=== PATIENT | male | born 1955 | race Caucasian/White ===

== ENCOUNTER → 2016-11-23 | Outpatient (CLI) | payer BC ==
--- NOTE | 2016-11-23 13:19 | XR ---
EXAMINATION TYPE: XR Hip Complete RT DATE OF EXAM: 11/23/2016 1:03 PM COMPARISON: NONE HISTORY: 61-year-old male with right hip pain TECHNIQUE: AP and frog-leg lateral views FINDINGS: There is [id number] circumferential narrowing of right hip joint space with marginal spurring. Suggestion of a subchondral geode within the inferior acetabulum. No acute fracture, subluxation, or dislocation. IMPRESSION: Moderate right hip osteoarthrosis. No acute osseous abnormality seen.
== END ==
LOC: RADXRMAIN 12:40
PROVIDERS: ATTEND Nurse Practitioner
DX: M16.11 Unilateral primary osteoarthritis, right hip (principal)
CPT/HCPCS: 73502

== ENCOUNTER → 2017-01-17 | Outpatient (CLI) | payer BC ==
[2017-01-17 13:02] LABS: ALT 38 U/L (21-72); AST 30 U/L (17-59); Alkaline Phosphatase 66 U/L (38-126); Anion Gap 8 mmol/L; Blood Urea Nitrogen 21 mg/dL (9-20); Calcium 9.5 mg/dL (8.4-10.2); Carbon Dioxide 28 mmol/L (22-30); Chloride 105 mmol/L (98-107); Glucose 93 mg/dL (74-99); Non-African American GFR(MDRD) >60 (>60 ml/min/1.73 sqM); Potassium 4.6 mmol/L (3.5-5.1); Sodium 141 mmol/L (137-145); Total Bilirubin 0.6 mg/dL (0.2-1.3); Total Protein 6.8 g/dL (6.3-8.2)
== END | disposition home or self-care (01) ==
LOC: LABWHC1 12:12
PROVIDERS: ATTEND Internal Medicine Interventional Cardiology
DX: R00.1 Bradycardia, unspecified (principal)
CPT/HCPCS: 36415; 80053; 84443

== ENCOUNTER → 2017-02-21 | Outpatient (CLI) | payer BC ==
--- NOTE | 2017-02-22 06:21 | MR ---
EXAMINATION TYPE: MR hip RT wo con DATE OF EXAM: 02/21/2017 12:46 PM COMPARISON: Radiographs 11/23/2016 HISTORY: 61-year-old male pain in rt hip TECHNIQUE: Multiplanar, multisequence images of the right hip were obtained without IV contrast. FINDINGS: Prostate gland is enlarged measuring 5.3 cm wide. Multilevel degenerative disc disease in the visualized lower lumbar spine. The sacrum and SI joints appear intact. No evidence for hip fracture or AVN. Along the superior weight-bearing aspect of the right femoral head, slightly anteriorly, there is foc al subchondral marrow edema with irregularity of the overlying articular cartilage. The anterior superior labrum appears degenerative and torn. Mild collar osteophytosis is present. Rel atively symmetric small hip joint effusions on both sides. Some degenerative changes are also noted w ithin the anterior superior labrum on the left.. The rectus femoris origin, right hamstrings origin, and bilateral iliopsoas insertions are within nor mal limits. Mild increased signal at both gluteal insertions though left greater than right compatible with inser tional tendinosis but with a mild to moderate trochanteric bursitis on the left. In addition, there i s tendinosis and small 8mm intrasubstance tear at the left hamstrings origin. There is symmetric course, caliber, and signal intensity of the sciatic nerves. No suspicious bone marrow replacement or other significant soft tissue abnormality seen. IMPRESSION: 1. MRI findings are in keeping with moderate right hip osteoarthrosis with collar osteophytosis, dege nerative and torn anterior superior acetabular labrum, superolateral joint space narrowing, and degen erative signal changes in the subchondral bone along the weightbearing aspect of the femoral head. 2. No evidence for hip fracture or AVN. 3. Some insertional gluteal tendinosis on both sides with mild to moderate trochanteric bursitis on t he left. 4. Small 8 mm intrasubstance tear at the left hamstrings origin also incidentally noted. 5. Prostatomegaly.
== END | disposition home or self-care (01) ==
LOC: RADMRIMAIN 10:54
PROVIDERS: ATTEND Family Medicine
DX: S73.191A Other sprain of right hip, initial encounter (principal); M16.11 Unilateral primary osteoarthritis, right hip; M70.61 Trochanteric bursitis, right hip; M25.751 Osteophyte, right hip; M89.8X5 Other specified disorders of bone, thigh; M76.891 Other specified enthesopathies of right lower limb, excluding foot

== ENCOUNTER → 2017-02-21 | Outpatient (CLI) | payer BC ==
--- NOTE | 2017-02-21 11:04 | US ---
EXAMINATION TYPE: US thyroid st tissue head/neck DATE OF EXAM: 02/21/2017 10:50 AM COMPARISON: NONE CLINICAL HISTORY: Hyperthyroidism E05.90. GLAND SIZE: Right Lobe: 5.2 x 1.9 x 3.0 cm Overall Parenchyma: homogenous Left Lobe: 4.5 x 1.5 x 3.1 cm Overall Parenchyma: homogeneous Isthmus Thickness: 1.0 cm NODULES RIGHT: # of nodules measured on right: 0 LEFT: # of nodules measured on left: 0 ISTHMUS: # of nodules measured in the isthmus: 0 Bilateral neck scanned, no evidence of lymphadenopathy. IMPRESSION: 1. Normal thyroid scan
== END | disposition home or self-care (01) ==
LOC: RADUSWWP 10:29
PROVIDERS: ATTEND Family Medicine
DX: E05.90 Thyrotoxicosis, unspecified without thyrotoxic crisis or storm (principal)
CPT/HCPCS: 76536

== ENCOUNTER → 2018-03-13 | Outpatient (CLI) | payer BC ==
--- NOTE | 2018-03-13 12:36 | CONS ---
CONSULTATION DATE OF SERVICE: 03/13/2018 This 62-year-old gentleman has been evaluated in the sleep center for obstructive sleep apnea-hypopnea syndrome. HISTORY OF PRESENT ILLNESS/SLEEP WAKE EVALUATION: Patient had been diagnosed with obstructive sleep apnea about 20 years ago. Since that time, on treatment with CPAP, now he is using his second CPAP unit for more than 5 years. Presently his sleep schedule on basically 7 days a week from 1 a.m. until 9 a.m. No problem with falling asleep. No TV in bedroom. Patient preferred to sleep on the stomach position. He is using his CPAP equipment every night for the whole night, but even with the machine according to his , he snores and he wakes up from sleep up to 2 times with nocturia. [place] Sleepiness Scale is 5. He takes naps possibly once a day at 5 p.m. No hypnagogic hallucinations, sleep paralysis or cataplexy. PAST MEDICAL HISTORY: Positive for allergy, back problems, right hip problems, history of nasal fracture. MEDICATIONS: , Singulair, Celebrex. PAST SURGICAL HISTORY: Right shoulder surgery in October 2017 and left leg fracture of lower leg both bones. SOCIAL HISTORY: Negative for smoking. Alcohol consumption occasional. FAMILY HISTORY: Parents had . REVIEW OF SYSTEMS: Awakenings from sleep, sometimes sleepiness during the day. No fevers. No double vision. No recent chest pain. No shortness of breath. No abdominal pain. No bleeding episodes. No blood in urine. No seizure episodes. PHYSICAL EXAMINATION: During physical exam, patient in no distress. VITAL SIGNS: BP 119/87, HR 57, RR 16, height 6 feet 3-1/2 inches, weight 315.4, BMI 38.9, temp 97.9, oxygen saturation at room air 96%. HEENT: PERRLA, EOMI. Oropharynx moderately low position of soft palate. Some asymmetry of nose with restriction of nasal breathing. NECK: Supple, no JVD. Thyroid is not palpable. LUNGS: Clear to percussion and to auscultation. Good air exchange. No wheezing or rhonchi. HEART: S1, S2 regular. No murmurs, gallops, or rubs. ABDOMEN: Obese. EXTREMITIES: No clubbing or cyanosis. PLASMA PROCESSOR: Awake, alert, and oriented X3. Cranial nerves 2 to 7 intact. There is no fasciculation or atrophy. noted. No focal deficits observed. IMPRESSION: 1. Obstructive sleep apnea-hypopnea syndrome for 20 years. Last sleep study 20 years ago. Patient on CPAP every night. Awakenings at night with snoring and nocturia. A wide neck 17-1/2 inches. Low position of soft palate. Restriction of nasal breathing. 2. Obesity, body mass index 38.9. 3. Allergy. 4. Right hip problems. 5. History of nasal fracture, nasal septum deviation. PLAN: 1. We will do CPAP titration for evaluation of effective CPAP pressure at the present time because the patient snores and wakes up from sleep while using his CPAP equipment. 2. Obesity. 3. Sleep hygiene with regular time in bed for at least 8 hours. 4. No driving if feeling any sleepiness. Thank you very much for allowing me to participate in management of your patient. Sincerely, Barry Mcconnell MD, PhD, FAASM Diplomat of [place] [employer] [place] [employer] [facility] [place] MMODL / IJN: [id number] /
== END | disposition home or self-care (01) ==
LOC: SLEEP 11:13
PROVIDERS: ATTEND Internal Medicine
DX: G47.33 Obstructive sleep apnea (adult) (pediatric) (principal); R35.1 Nocturia; E66.9 Obesity, unspecified; J34.2 Deviated nasal septum; T78.40XD Allergy, unspecified, subsequent encounter; M25.551 Pain in right hip; Z87.81 Personal history of (healed) traumatic fracture; Z79.899 Other long term (current) drug therapy; Z99.89 Dependence on other enabling machines and devices; Z68.38 Body mass index [BMI] 38.0-38.9, adult; Z98.890 Other specified postprocedural states
CPT/HCPCS: 99211

== ENCOUNTER 2018-07-16 23:46 | Emergency (ER) | payer BC ==
[2018-07-16] MEDS ORDERED: METOCLOPRAMIDE 5 MG/ML 2 ML VIAL IVP STA (23:57)
[2018-07-16] MEDS ORDERED: SODIUM CHLORIDE 0.9% 500 ML 500 ML IV STA (23:57)
[2018-07-16 23:58] VITALS: PULSE 70; RESP 28
[2018-07-16] MEDS ORDERED: IBUPROFEN IV 600 MG in SODIUM CHLORIDE 0.9% 250 ML IV STA (23:59)
[2018-07-16] MEDS ORDERED: ACETAMINOPHEN IV (For NPO) 1,000 MG in EMPTY BAG 1 BAG IVPB STA (23:59)
--- NOTE | 2018-07-17 00:01 | ED ---
General Adult HPI - General Source: patient, RN notes reviewed Mode of arrival: ambulatory Limitations: no limitations <Checo Najera - Last Filed: 07/17/18 00:43> <Matteo Pichardo - Last Filed: 07/17/18 02:23> - General Chief complaint: Upper Respiratory Infection Stated complaint: flu like symptoms Time Seen by Provider: 07/16/18 23:46 - History of Present Illness Initial comments: This is a 63-year-old male who presents emergency Department stating he thinks he has the flu. Patient states he's been nauseous since about 6:00 this evening and he never lost himself to throw up but he hasn't felt a speck years. Patient states he also feels hot like he has a fever but didn't take his temperature. Patient states he has had a couple bouts of diarrhea. Patient states he has significant abdominal cramping diffusely throughout his abdomen. Patient states it is no one spot that hurts more than another. Patient denies any back pain. Patient denies any chest pain palpitations difficulty breathing or shortness of breath. (Checo Najera) - Related Data Home Medications Medication Instructions Recorded Confirmed Celecoxib [CeleBREX] 200 mg PO DIRECTED PRN 05/22/16 09/29/16 Fluticasone Propionate [Flonase 1 spray EA NOSTRIL DIRECTED PRN 05/22/16 Allergy Relief] Montelukast [Singulair] 10 mg PO DAILY PRN 05/22/16 09/29/16 Multivitamin [Multivitamins Adult 1 each PO DAILY 05/22/16 09/29/16 Gummies] Vitamin B Complex 1 each PO DAILY 05/22/16 09/29/16 Previous Rx's Medication Instructions Recorded Ondansetron Odt [Zofran ODT] 4 mg PO Q8HR PRN #5 tab 09/29/16 Ondansetron Odt [Zofran ODT] 4 mg PO Q8HR PRN #10 tab 07/17/18 Allergies Allergy/AdvReac Type Severity Reaction Status Date / Time peanut Allergy Swelling Verified 07/16/18 23:58 environmental Allergy Unknown Uncoded 07/16/18 23:58 Review of Systems ROS Other: All systems not noted in ROS Statement are negative. <Checo Najera - Last Filed: 07/17/18 00:43> ROS Other: All systems not noted in ROS Statement are negative. <Matteo Pichardo - Last Filed: 07/17/18 02:23> ROS Statement: Those systems with pertinent positive or pertinent negative responses have been documented in the HPI. Past Medical History Past Medical History: GERD/Reflux, Sleep Apnea/CPAP/BIPAP Additional Past Medical History / Comment(s): arthritis, CPAP, Interstitial cystistis (bladder wall inflamation) History of Any Multi-Drug Resistant Organisms: None Reported Past Surgical History: Bariatric Surgery, Cholecystectomy, Orthopedic Surgery Additional Past Surgical History / Comment(s): left calf tali from knee to ankle , gastric band, heart cath (negative) Past Anesthesia/Blood Transfusion Reactions: No Reported Reaction Past Psychological History: No Psychological Hx Reported Smoking Status: Never smoker Past Alcohol Use History: Occasional Past Drug Use History: None Reported - Past Family History Father Family Medical History: No Reported History Mother Family Medical History: Cancer Additional Family Medical History / Comment(s): from brain cancer <Checo Najera - Last Filed: 07/17/18 00:43> General Exam Limitations: no limitations <Checo Najera - Last Filed: 07/17/18 00:43> <Matteo Pichardo - Last Filed: 07/17/18 02:23> - General Exam Comments Initial Comments: GENERAL: Patient is well-developed and well-nourished. Patient is nontoxic and well- hydrated and is in mild distress. ENT: Neck is soft and supple. No significant lymphadenopathy is noted. Oropharynx is clear. Moist mucous membranes. EYES: The sclera were anicteric and conjunctiva were pink and moist. Extraocular movements were intact and pupils were equal round and reactive to light. Eyelids were unremarkable. PULMONARY: Unlabored respirations. Good breath sounds bilaterally. No audible rales rhonchi or wheezing was noted. CARDIOVASCULAR: There is a regular rate and rhythm without any murmurs gallops or rubs. ABDOMEN: Soft and nontender with normal bowel sounds. No palpable organomegaly was noted. There is no palpable pulsatile mass. SKIN: Skin is clear with no lesions or rashes and otherwise unremarkable. NEUROLOGIC: Patient is alert and oriented x3. Cranial nerves II through XII are grossly intact. Motor and sensory are also intact. Normal speech, volume and content. Symmetrical smile. MUSCULOSKELETAL: Normal extremities with adequate strength and full range of motion. LYMPHATICS: No significant lymphadenopathy is noted PSYCHIATRIC: Normal psychiatric evaluation. (Checo Najera) Vital Signs 07/16/18 07/16/18 07/17/18 23:48 23:54 00:00 Temperature 101.1 F H Pulse Rate 70 Respiratory 28 H Rate Blood Pressure 182/97 182/97 O2 Sat by Pulse 97 97 Oximetry 07/17/18 07/17/18 07/17/18 00:10 00:20 00:30 Temperature Pulse Rate Respiratory Rate Blood Pressure 149/82 149/82 149/82 O2 Sat by Pulse Oximetry 07/17/18 07/17/18 07/17/18 01:00 01:50 02:00 Temperature Pulse Rate Respiratory Rate Blood Pressure 166/94 135/77 135/77 O2 Sat by Pulse 95 93 L 90 L Oximetry 07/17/18 02:10 Temperature Pulse Rate Respiratory Rate Blood Pressure 126/67 O2 Sat by Pulse 96 Oximetry Medical Decision Making <Checo Najera - Last Filed: 07/17/18 00:43> - Lab Data Result diagrams: 07/17/18 00:16 07/17/18 00:16 <Matteo Pichardo - Last Filed: 07/17/18 02:23> - Medical Decision Making Dr. Pichardo will be taking over the care of this patient at 1am. (Checo Najera) I receive this patient has a sign out, I reviewed the lab results with the patient and on reevaluation, he states that most of the symptoms have resolved, he is feeling better and he would like to go home. Discussed appropriate further care and follow-up. Discussed return parameters. (Matteo Pichardo) - Lab Data Lab Results 07/17/18 07/17/18 07/17/18 Range/Units 00:16 00:16 00:16 WBC 16.4 H (3.8-10.6) k/uL RBC 4.72 (4.30-5.90) m/uL Hgb 14.9 (13.0-17.5) gm/dL Hct 44.8 (39.0-53.0) % MCV 94.8 (80.0-100.0) fL MCH 31.5 (25.0-35.0) pg MCHC 33.3 (31.0-37.0) g/dL RDW 12.8 (11.5-15.5) % Plt Count 302 (150-450) k/uL Neutrophils % 91 % Lymphocytes % 4 % Monocytes % 4 % Eosinophils % 1 % Basophils % 0 % Neutrophils # 15.0 H (1.3-7.7) k/uL Lymphocytes # 0.6 L (1.0-4.8) k/uL Monocytes # 0.6 (0-1.0) k/uL Eosinophils # 0.1 (0-0.7) k/uL Basophils # 0.0 (0-0.2) k/uL Sodium 135 L (137-145) mmol/L Potassium 4.1 (3.5-5.1) mmol/L Chloride 100 (98-107) mmol/L Carbon Dioxide 26 (22-30) mmol/L Anion Gap 9 mmol/L BUN 26 H (9-20) mg/dL Creatinine 0.89 (0.66-1.25) mg/dL Est GFR (CKD-EPI)AfAm >90 (>60 ml/min/1.73 sqM) Est GFR (CKD-EPI)NonAf >90 (>60 ml/min/1.73 sqM) Glucose 146 H (74-99) mg/dL Calcium 9.6 (8.4-10.2) mg/dL Total Bilirubin 1.0 (0.2-1.3) mg/dL AST 27 (17-59) U/L ALT 35 (21-72) U/L Alkaline Phosphatase 79 (38-126) U/L Total Protein 6.9 (6.3-8.2) g/dL Albumin 4.0 (3.5-5.0) g/dL Amylase 38 (30-110) U/L Lipase 44 (23-300) U/L Urine Color Yellow Urine Appearance Cloudy (Clear) Urine pH 8.0 (5.0-8.0) Ur Specific [place] 1.014 (1.001-1.035) Urine Protein Negative (Negative) Urine Glucose (UA) Negative (Negative) Urine Ketones 1+ H (Negative) Urine Blood Negative (Negative) Urine Nitrite Negative (Negative) Urine Bilirubin Negative (Negative) Urine Urobilinogen <2.0 (<2.0) mg/dL Ur Leukocyte Esterase Negative (Negative) Urine RBC 2 (0-5) /hpf Amorphous Sediment Rare H (None) /hpf Urine Bacteria Occasional H (None) /hpf Urine Mucus Rare H (None) /hpf Disposition <Checo Najera - Last Filed: 07/17/18 00:43> Is patient prescribed a controlled substance at d/c from ED?: No <Matteo Pichardo - Last Filed: 07/17/18 02:23> Clinical Impression: Nausea and vomiting Disposition: HOME SELF-CARE Condition: Good Instructions: Acute Nausea and Vomiting (ED) Prescriptions: Ondansetron Odt [Zofran ODT] 4 mg PO Q8HR PRN #10 tab PRN Reason: Nausea Referrals: Kiara Barger DO [Primary Care Provider] - 1-2 days
--- NOTE | 2018-07-17 00:38 | XR ---
EXAMINATION TYPE: XR KUB DATE OF EXAM: 07/17/2018 COMPARISON: 09/29/2016 HISTORY: Abdominal pain TECHNIQUE: 4 views supine FINDINGS: There is bariatric surgery with lap band. There are clips from cholecystectomy. There is no sign of intestinal obstruction or pneumoperitoneum. Fecal pattern is normal. There is no evidence of a mass. There are spondylotic changes in the lumbar spine. IMPRESSION: Nonacute abdomen. No adverse change compared to old exam.
[2018-07-17 00:39] LABS: Basophils % (A) 0 %; Eosinophils # (A) 0.1 k/uL (0-0.7); Eosinophils % (A) 1 %; HCT 44.8 % (39.0-53.0); HGB 14.9 gm/dL (13.0-17.5); Lymphocytes # (A) 0.6 k/uL (1.0-4.8); Lymphocytes % (A) 4 %; MCH 31.5 pg (25.0-35.0); MCHC 33.3 g/dL (31.0-37.0); MCV 94.8 fL (80.0-100.0); Mean Platelet Volume 6.9; Monocytes # (A) 0.6 k/uL (0-1.0); Monocytes % (A) 4 %; Neutrophils % (A) 91 %; Platelet Count 302 k/uL (150-450); RBC 4.72 m/uL (4.30-5.90); RDW 12.8 % (11.5-15.5); WBC 16.4 k/uL (3.8-10.6)
[2018-07-17 00:48] LABS: Amorphous Sediment,Urine Rare /hpf; Appearance,Urine Cloudy (Clear); Bacteria,Urine Occasional /hpf; Bilirubin,Urine Negative (Negative); Blood,Urine Negative (Negative); Color,Urine Yellow; Glucose,Urine (UA) Negative (Negative); Ketones,Urine 1+ (Negative); Leukocyte Esterase,Urine Negative (Negative); Mucus,Urine Rare /hpf; Nitrite,Urine Negative (Negative); Protein,Urine Negative (Negative); RBC,Urine 2 /hpf (0-5); Specific Gravity,Urine 1.014 (1.001-1.035); Urobilinogen,Urine <2.0 mg/dL (<2.0)
[2018-07-17 00:50] LABS: ALT 35 U/L (21-72); AST 27 U/L (17-59); Alkaline Phosphatase 79 U/L (38-126); Amylase 38 U/L (30-110); Anion Gap 9 mmol/L; Blood Urea Nitrogen 26 mg/dL (9-20); Calcium 9.6 mg/dL (8.4-10.2); Carbon Dioxide 26 mmol/L (22-30); Chloride 100 mmol/L (98-107); Glucose 146 mg/dL (74-99); Lipase 44 U/L (23-300); Potassium 4.1 mmol/L (3.5-5.1); Sodium 135 mmol/L (137-145); Total Protein 6.9 g/dL (6.3-8.2)
[2018-07-17 02:13] VITALS: BP 126/67
[2018-07-17 02:36] VITALS: TEMP 101.3
== END 2018-07-17 02:36 | disposition home or self-care (01) ==
LOC: EC 23:46
DX: R11.2 Nausea with vomiting, unspecified (principal); R10.84 Generalized abdominal pain; R19.7 Diarrhea, unspecified; K21.9 Gastro-esophageal reflux disease without esophagitis; G47.30 Sleep apnea, unspecified; Z79.899 Other long term (current) drug therapy; Z91.010 Allergy to peanuts; Z91.048 Other nonmedicinal substance allergy status; Z98.84 Bariatric surgery status; Z90.49 Acquired absence of other specified parts of digestive tract
CPT/HCPCS: 36415; 80053; 82150; 83690; 85025; 81001; 74018; 99283; 96365; 96375 ×2; J2765; J0131; J1741

== ENCOUNTER → 2020-02-15 | Outpatient (CLI) | payer BC ==
[2020-02-15 12:51] LABS: HCT 43.9 % (39.0-53.0); HGB 14.6 gm/dL (13.0-17.5); MCH 31.8 pg (25.0-35.0); MCHC 33.2 g/dL (31.0-37.0); MCV 95.8 fL (80.0-100.0); Mean Platelet Volume 7.4; Platelet Count 294 k/uL (150-450); RBC 4.59 m/uL (4.30-5.90); RDW 12.7 % (11.5-15.5); WBC 7.5 k/uL (3.8-10.6)
[2020-02-15 19:12] LABS: African American GFR (CKD) 93.1 (60.0-200.0); Albumin/Globulin Ratio 1.82 (1.60-3.17); Anion Gap 5.7 mmol/L (4.00-12.00); Calcium 9.3 mg/dL (8.7-10.3); Carbon Dioxide 26.3 mmol/L (21.6-31.8); Globulin 2.2 g/dL (1.6-3.3); Non-African American GFR(CKD) 80.3 (60.0-200.0); Potassium 4.6 mmol/L (3.5-5.5); Total Bilirubin 0.5 mg/dL (0.2-1.2); Total Protein 6.2 g/dL (6.2-8.2)
== END | disposition home or self-care (01) ==
LOC: LABWHC1 11:56
PROVIDERS: ATTEND Internal Medicine Interventional Cardiology
DX: I48.11 Longstanding persistent atrial fibrillation (principal)
CPT/HCPCS: 36415; 80053; 84443; 85027

== ENCOUNTER → 2021-11-28 | Outpatient (CLI) | payer BC | END | disposition home or self-care (01) | LOC: LABWHC1 10:46 | PROVIDERS: ATTEND Urology | DX: R97.20 Elevated prostate specific antigen [PSA] (principal) | CPT/HCPCS: 36415; 84153; 84154 ==

== ENCOUNTER → 2021-12-23 | Outpatient (CLI) | payer BC ==
--- NOTE | 2021-12-25 11:39 | MR ---
EXAMINATION TYPE: MR Prostate wo/w con DATE OF EXAM: 12/23/2021 COMPARISON: None. INDICATION: Elevated PSA. PSA: 4.7 ng/ml on November 28, 2021. Recent Biopsy and Date: Pathology Report (If Applicable): TECHNIQUE: Examination was performed using a 3T MRI without an endorectal coil. Multiparametric imaging was perf ormed with T2 mutliplanar sequences, axial diffusion weighted imaging and dynamic contrast enhanced i maging, utilizing 13 mL intravenous Gadavist gadolinium contrast. FINDINGS: There is no clinically significant cancer identified. PROSTATE VOLUME: 5.5 cm SI x 4.6 cm AP x 6.1 cm LR Vol= 80.8 cc Predicted PSA equals 9.70. PSA DENSITY: 0.06 ng/ml/cc Enlarged prostate consistent with BPH. The peripheral zone show some areas of indistinct mild hypoint ensity on ADC mapping without more moderate diminished signal or areas of increased signal on diffusi on weighted imaging. Findings most prominent in the right mid to basilar level laterally. Transitiona l zone shows heterogeneous enlargement without distinct area of suspicious hypointensity. Seminal vesicles appear within normal limits. Prostate capsule is maintained. No suspicious wall thic kening or distention of the bladder. Visualized osseous structures are intact. IMPRESSION: Enlarged prostate consistent with BPH A focus of clinically significant cancer is not identified. Highest Assessment Category: 2 MRI Stage: T0 N0 M0 based on review of pelvic images. False negative rates for MRI range from 5-20% depending on risk profile. Assessment Categories: 1 ? Very low (clinically significant cancer is highly unlikely to be present) 2 ? Low (clinically significant cancer is unlikely to be present) 3 ? Intermediate (the presence of clinically significant cancer is equivocal) 4 ? High (clinically significant cancer is likely to be present) 5 ? Very high (clinically significant cancer is highly likely to be present)
== END | disposition home or self-care (01) ==
LOC: RADMRIMAIN 08:58
PROVIDERS: ATTEND Urology
DX: R97.20 Elevated prostate specific antigen [PSA] (principal); N40.0 Benign prostatic hyperplasia without lower urinary tract symptoms
CPT/HCPCS: 72197; A9585

== ENCOUNTER → 2022-06-19 | Outpatient (CLI) | payer BC | END | disposition home or self-care (01) | LOC: LABWHC1 14:38 | PROVIDERS: ATTEND Urology | DX: R97.20 Elevated prostate specific antigen [PSA] (principal) | CPT/HCPCS: 36415; 84153 ==

== ENCOUNTER → 2023-01-04 | Outpatient (CLI) | payer BC | END | disposition home or self-care (01) | LOC: LABWHC1 10:50 | PROVIDERS: ATTEND Urology | DX: R97.20 Elevated prostate specific antigen [PSA] (principal) | CPT/HCPCS: 36415; 84153 ==

== ENCOUNTER → 2023-12-11 | Outpatient (CLI) | payer BC | END | disposition home or self-care (01) | LOC: LABWHC1 11:02 | PROVIDERS: ATTEND Urology | DX: R97.20 Elevated prostate specific antigen [PSA] (principal) | CPT/HCPCS: 36415; 84153 ==

== ENCOUNTER → 2024-02-17 | Outpatient (CLI) | payer MEDICARE, BC ==
[2024-02-17 15:21] LABS: Basophils # (A) 0.04 X 10*3/uL (0.00-0.10); Basophils % (A) 0.6 %; Eosinophils # (A) 0.31 X 10*3/uL (0.04-0.35); Eosinophils % (A) 4.7 %; HCT 42.6 % (39.6-50.0); HGB 13.8 g/dL (13.0-17.0); Lymphocytes # (A) 2.08 X 10*3/uL (0.90-5.00); Lymphocytes % (A) 31.3 %; MCH 30.2 pg (27.0-32.0); MCHC 32.4 g/dL (32.0-37.0); MCV 93.2 FL (80.0-97.0); Mean Platelet Volume 10.1 FL (9.5-12.2); Monocytes # (A) 0.46 X 10*3/uL (0.20-1.00); Monocytes % (A) 6.9 %; NRBC Per 100 WBC 0 X 10*3/uL (0.00-0.01); Neutrophils # (A) 3.75 X 10*3/uL (1.80-7.70); Neutrophils % (A) 56.3 %; Platelet Count 298 X 10*3/uL (140-440); RBC 4.57 X 10*6/uL (4.40-5.60); RDW 14.4 % (11.5-14.5); WBC 6.65 X 10*3/uL (4.50-10.00)
[2024-02-17 16:08] LABS: BUN/Creat Ratio 30.11 Ratio (12.00-20.00); Blood Urea Nitrogen 27.1 mg/dL (9.0-27.0); Calcium 9.3 mg/dL (8.7-10.3); Carbon Dioxide 22.8 mmol/L (21.6-31.8); Chloride 106 mmol/L (96-109); Glucose 119 mg/dL (70-110); Potassium 4.6 mmol/L (3.5-5.5); Sodium 139 mmol/L (135-145)
== END | disposition home or self-care (01) ==
LOC: LABPAT 09:51
PROVIDERS: ATTEND Urology
DX: Z01.812 Encounter for preprocedural laboratory examination (principal); R97.20 Elevated prostate specific antigen [PSA]
CPT/HCPCS: 80048; 85025

== ENCOUNTER 2024-02-20 09:55 | Day surgery (SDC) | payer MEDICARE, BC ==
[2024-02-17 13:22] VITALS: BMI 37.1
--- NOTE | 2024-02-17 19:52 | P.GSHP ---
History of Present Illness H&P Date: 02/17/24 Chief Complaint: Elevated PSA level The patient is a 68-year-old white male with no family history of prostate cancer. He underwent prostate ultrasound in June 2022. The prostate volume was 73 cc, and biopsies were negative. His PSA level at that time was 5.60. Prior MRI of the prostate showed a prostate volume of 81 cc, with no suspicious lesions seen. Following the ultrasound in late 2021, he was placed on finasteride. His PSA level remains relatively stable at 5.2. He reports lower urinary tract symptoms despite taking alfuzosin and finasteride. TURP is contraindicated due to the fact that he takes Eliquis. He is interested in a HoLEP procedure, but will first undergo prostate biopsies. He is concerned about the fact that local anesthesia may cause erectile dysfunction, so he chooses to undergo the procedure under sedation to avoid the use of local anesthetic. - Genitourinary (Male) Genitourinary: Reports urinary frequency Past Medical History Past Medical History: GERD/Reflux, Osteoarthritis (OA), Prostate Disorder, Sleep Apnea/CPAP/BIPAP Additional Past Medical History / Comment(s): arthritis, CPAP, Interstitial cystistis (bladder wall inflamation), " Wants to make sure I don't have cancer of prostate." Enlarged prostate. History of Any Multi-Drug Resistant Organisms: None Reported Past Surgical History: Bariatric Surgery, Cholecystectomy, Heart Catheterization, Orthopedic Surgery Additional Past Surgical History / Comment(s): left calf tali from knee to ankle, gastric band-no fliud at this time in band, heart cath (negative)in 07/07/2023. Carpal tunnel bi lat. Total rt hip. Past Anesthesia/Blood Transfusion Reactions: No Reported Reaction Additional Past Anesthesia/Blood Transfusion Reaction / Comment(s): No hx blood transfusion. Smoking Status: Never smoker - Past Family History Father Family Medical History: No Reported History Mother Family Medical History: Cancer Additional Family Medical History / Comment(s): from brain cancer Medications and Allergies Home Medications Medication Instructions Recorded Confirmed Type Celecoxib [CeleBREX] 200 mg PO QAM PRN 05/22/16 02/17/24 History Fluticasone Propionate [Flonase 1 spray EA NOSTRIL QAM PRN 05/22/16 02/17/24 History Allergy Relief] Montelukast [Singulair] 10 mg PO DAILY PRN 05/22/16 02/17/24 History Multivitamin [Multivitamins Adult 1 each PO QAM 05/22/16 02/17/24 History Gummies] Vitamin B Complex 1 each PO QAM 05/22/16 02/17/24 History Finasteride [Proscar] 5 mg PO QAM 02/17/24 02/17/24 History Magnesium(Unknown Dose) 1 dose PO QAM 02/17/24 02/17/24 History Zinc (Unknown Dose) 1 dose PO QAM 02/17/24 02/17/24 History Zyrtec (Unknown Dose) 1 dose PO QAM 02/17/24 02/17/24 History Allergies Allergy/AdvReac Type Severity Reaction Status Date / Time environmental Allergy Unknown Uncoded 02/17/24 12:52 Surgical - Exam - General well developed, well nourished, no distress - Respiratory normal respiratory effort - Abdomen Abdomen: soft, non tender, no guarding, no rigid, no rebound - Genitourinary normal penis with no external lesions, testicles non-tender - Rectum Rectum: normal sphincter tone, no masses, other (Prostate approximately 50 g in size, anodular, R>L) - Psychiatric oriented to time, oriented to person, oriented to place, speech is normal, memory intact Assessment and Plan (1) Elevated prostate specific antigen [PSA] Status: Acute Code(s): R97.20 - ELEVATED PROSTATE SPECIFIC ANTIGEN [PSA] SNOMED Code(s): 594326975 Plan: The patient will undergo transrectal ultrasound-guided biopsies of the prostate. The procedure has been reviewed in detail with the patient. He has been made aware of potential risks, which include anesthesia, bleeding, and infection. He is also aware that a negative biopsy does not completely rule out prostate cancer.
[2024-02-20] MEDS: LACTATED RINGERS 1,000 ML IV SCH (10:30)
[2024-02-20] MEDS: GENTAMICIN 40 MG/ML 2 ML VIAL IM PRN (10:35)
[2024-02-20 11:12] VITALS: TEMP 97.2
[2024-02-20] MEDS ORDERED: MIDAZOLAM 2 MG/2 ML VIAL ONE (13:25)
[2024-02-20] MEDS ORDERED: fentaNYL (PF) 50 MCG/ML 2 ML AMP ONE (13:25)
[2024-02-20] MEDS ORDERED: PROPOFOL 10 MG/ML 20 ML VIAL IV ONE (13:25)
[2024-02-20] MEDS ORDERED: KETAMINE HCL IN 0.9 % NACL 50 MG/5 ML SYRINGE ONE (13:25)
[2024-02-20] MEDS: LACTATED RINGERS 1,000 ML IV ONE (13:55)
--- NOTE | 2024-02-20 14:07 | P.OP ---
Date of Procedure: 02/20/24 Preoperative Diagnosis: Elevated PSA level Postoperative Diagnosis: Same Procedure(s) Performed: Transrectal ultrasound-guided biopsies of the prostate Anesthesia: MAC Surgeon: Marino Samuels Estimated Blood Loss (ml): 5 IV fluids (ml): 400 Pathology: other (Prostate biopsies) Condition: stable Disposition: PACU Indications for Procedure: The patient is a 68-year-old white male with no family history of prostate cancer. He underwent prostate ultrasound in June 2022. The prostate volume was 73 cc, and biopsies were negative. His PSA level at that time was 5.60. Prior MRI of the prostate showed a prostate volume of 81 cc, with no suspicious lesions seen. Following the ultrasound in late 2021, he was placed on finasteride. His PSA level remains relatively stable at 5.2. He reports lower urinary tract symptoms despite taking alfuzosin and finasteride. TURP is contraindicated due to the fact that he takes Eliquis. He is interested in a HoLEP procedure, but will first undergo prostate biopsies. He is concerned about the fact that local anesthesia may cause erectile dysfunction, so he chooses to undergo the procedure under sedation to avoid the use of local anesthetic. Operative Findings: Prostate volume 77.29 cc. No suspicious lesions seen. Description of Procedure: The patient was taken to the operating room and placed in the left lateral decubitus position. NICOLE revealed the prostate to be moderately enlarged, with right-sided asymmetrical enlargement. The [employer] transrectal ultrasound probe was placed intrarectally. It was then placed within the stand of the [employer] MRI/TRUS Fusion for Prostate Biopsy system. The prostate was imaged in both the axial and sagittal planes, revealing a prostate volume of 77.29 mL. No hypoechoic lesions were seen within the peripheral zone. Transitional zone showed evidence of BPH, R>L. Using the Biopty gun, 12 biopsies were obtained from the peripheral zone utilizing a standard template. Once the procedure was completed, the ultrasound probe was removed. The patient tolerated the procedure well was taken to the recovery room stable condition.
[2024-02-20 15:05] VITALS: BP 151/76; PULSE 58; RESP 17
== END 2024-02-20 14:53 | disposition home or self-care (01) ==
LOC: OR 09:55
PROVIDERS: ATTEND Urology
DX: R97.20 Elevated prostate specific antigen [PSA] (principal); G47.30 Sleep apnea, unspecified; K21.9 Gastro-esophageal reflux disease without esophagitis; M19.90 Unspecified osteoarthritis, unspecified site; N40.1 Benign prostatic hyperplasia with lower urinary tract symptoms; Z90.49 Acquired absence of other specified parts of digestive tract; Z79.899 Other long term (current) drug therapy
CPT/HCPCS: 55700; 88305; J2250; J1580; J3010; J2704

== ENCOUNTER → 2024-07-03 | Outpatient (CLI) | payer MEDICARE ==
[2024-07-03 12:55] LABS: African American GFR (CKD) >90 (>60 ml/min/1.73 sqM); Anion Gap 5 mmol/L; Blood Urea Nitrogen 29 mg/dL (9-20); Calcium 9.4 mg/dL (8.4-10.2); Carbon Dioxide 30 mmol/L (22-30); Chloride 104 mmol/L (98-107); Glucose 109 mg/dL (74-99); Non-African American GFR(CKD) 88 (>60 ml/min/1.73 sqM); Phosphorus 3.4 mg/dL (2.5-4.5); Potassium 4.8 mmol/L (3.5-5.1); Sodium 139 mmol/L (137-145)
--- NOTE | 2024-07-03 15:21 | CT ---
EXAMINATION TYPE: CT angio abdomen pelvis CT DLP: 3021.5 mGycm, Automated exposure control for dose reduction was used. DATE OF EXAM: 07/03/2024 1:48 PM COMPARISON: MR prostate 12/23/2021. CLINICAL INDICATION:Male, 68 years old with history of N40.1 BENIGN PROSTATIC HYPERPLASIA WITH LOWER; Benign prostatic hyperplasia, pre procedure at [facility] TECHNIQUE: Multiple thin slice sub-millimeter images were obtained through the pelvis before and afte r the uneventful administration 100 mL of Isovue 370 intravenously. 3-D reconstructed images were ob tained of the aorta and its branches. FINDINGS: CTA Abdomen and pelvis: The abdominal aorta does not demonstrate aneurysmal dilatation. No significan t atherosclerotic disease identified. No evidence of intramural hematoma or dissection. The origins o f the superior mesenteric artery, renal arteries, inferior mesenteric artery, and celiac axis are pat ent. The iliac vessels are normal in morphology. VISCERA: The liver, spleen, adrenal glands, kidneys, pancreas, and gallbladder are not optimally enha nced due the arterial phase utilized. LIVER: Few hepatic cysts with largest in the right hepatic lobe measuring up to 2.8 cm GALLBLADDER AND BILE DUCTS: Gallbladder is surgically absent. No biliary ductal dilatation. PANCREAS: Mild fatty atrophy. SPLEEN: Unremarkable. ADRENAL GLANDS: Unremarkable. KIDNEYS AND URETERS: No evidence of hydronephrosis or renal calculus. The ureters are unremarkable. PELVIS BLADDER: Underdistended. Limited evaluation due to streak artifact from hip prosthesis. REPRODUCTIVE: Prostate is enlarged in size measuring 6.0 cm in transverse dimension. Few small calcif ications demonstrated within the prostate gland. ABDOMEN & PELVIS STOMACH AND BOWEL: Postsurgical changes from gastric lap band with reservoir within the left epigastr ic anterior temporal wall. Hyperdense material is identified within the colon. Scattered distal colon ic diverticula without surrounding inflammatory changes. No focal wall thickening identified. The haydee endix is within normal limits. No evidence of bowel obstruction. PERITONEUM: No evidence of pneumoperitoneum or free fluid. MUSCULOSKELETAL: No acute osseous abnormalities. Postsurgical changes from right total hip arthroplas ty which creates streak artifact limiting evaluation. Moderate multilevel degenerative disc disease o f the lumbar spine. LYMPH NODES: No gross evidence for lymphadenopathy. SOFT TISSUE/ABDOMINAL WALL: Unremarkable LOWER CHEST: Lingular scarring and/or atelectasis. IMPRESSION: 1. No acute abdominal/pelvic process. 2. No evidence of abdominal aortic aneurysm or significant atherosclerotic disease. 3. Prostatomegaly. [facility], , 07/03/2024 3:19 PM
== END | disposition home or self-care (01) ==
LOC: RADCTMAIN 12:17
PROVIDERS: ATTEND Radiology Diagnostic Radiology
DX: N40.1 Benign prostatic hyperplasia with lower urinary tract symptoms (principal); R35.0 Frequency of micturition
CPT/HCPCS: 80069; 36415; 74174; Q9967

== ENCOUNTER → 2025-02-09 | Outpatient (CLI) | payer MEDICARE | END | disposition home or self-care (01) | LOC: LABWHC1 12:28 | PROVIDERS: ATTEND Urology | DX: R97.20 Elevated prostate specific antigen [PSA] (principal) | CPT/HCPCS: 36415; 84153 ==